=== PATIENT | female | born 1990 | race Caucasian/White ===

== ENCOUNTER 2017-04-28 07:22 | Emergency (ER) | payer OTHER ==
[~2017-04-28] VITALS: Ht 162.6 cm; Wt 57.0 kg
[~2017-04-28 07:22] MED LIST: BUPR1FIL3 PO; FLUO20CA19 PO; LORA-446 PO
[2017-04-28] MEDS ORDERED: BUPR1FIL5 TD (07:32)
[2017-04-28] MEDS ORDERED: SERT50TA5 PO (07:32)
[2017-04-28 09:34] VITALS: BP 93/57
== END 2017-04-28 09:36 | disposition home or self-care (01) ==
LOC: ED 08:48
DX: T40.1X1A Poisoning by heroin, accidental (unintentional), initial encounter (principal); Y92.89 Other specified places as the place of occurrence of the external cause
CPT/HCPCS: 99283